=== PATIENT | female | born 1980 | race African-American/Black ===

== ENCOUNTER 2020-01-24 15:05 | Emergency (ER) | payer MEDICAID, OTHER ==
--- NOTE | 2020-01-24 15:38 | ER Document Report ---
ED Medical Screen (RME) - General Chief Complaint: Syncope Stated Complaint: POSSIBLE SYNCOPE Time Seen by Provider: 01/24/20 15:36 Primary Care Provider: CARLOS RAWLS NP [Primary Care Provider] - Follow up as needed Mode of Arrival: Ambulatory Information source: Patient Notes: 39-year-old female presented to ED for syncopal episode last night. She states she was in the shower when her heard her fall came running in there and she was unconscious in the shower. She states she has never had this happen before. She states she did not come to the emergency room last night because she did not feel she needed to. She does have a history of migraines and hypothyroidism. She states she does not have any cardiac history she does not have a history of diabetes in her has had a vasectomy. Patient is alert oriented respirations regular nonlabored speaking in full sentences answering all questions appropriately at this time. I have greeted and performed a rapid initial assessment of this patient. A comprehensive ED assessment and evaluation of the patient, analysis of test results and completion of medical decision making process will be conducted by an additional ED providers. TRAVEL OUTSIDE OF THE [place] IN LAST 30 DAYS: No - Related Data Allergies/Adverse Reactions: No Known Allergies Allergy (Verified 01/24/20 15:25) Home Medications: migraine medication. naproxen. levothyroxine. melatonin. mthocarbamol. gabapentin. sertraline Past Medical History - Social History Chew tobacco use (# tins/day): No Frequency of alcohol use: Occasional Drug Abuse: None Neurological Medical History: Reports: Hx Migraine Psychiatric Medical History: Reports: Hx Depression Past Surgical History: Reports: Hx Cholecystectomy - Immunizations Hx Diphtheria, Pertussis, Tetanus Vaccination: Yes Physical Exam - Vital signs Vitals: Temp Pulse Resp BP Pulse Ox 98.7 F 89 16 104/70 100 01/24/20 15:10 01/24/20 15:10 01/24/20 15:10 01/24/20 15:10 01/24/20 15:10 Course - Vital Signs Vital signs: Temp Pulse Resp BP Pulse Ox 98.7 F 89 16 104/70 100 01/24/20 15:26 01/24/20 15:10 01/24/20 15:10 01/24/20 15:10 01/24/20 15:10 Doctor's Discharge - Discharge Referrals: CARLOS RAWLS, [employer] [Primary Care Provider] - Follow up as needed
[2020-01-24 15:58] LABS: HEMATOCRIT 29.3 % (36.0-47.0); HEMOGLOBIN 9.5 g/dL (12.0-15.5); MEAN CORPUSCULAR HEMOGLOBIN 26.1 pg (27.0-33.4); MEAN CORPUSCULAR HGB CONC 32.5 g/dL (32.0-36.0); MEAN CORPUSCULAR VOLUME 80 fl (80-97); PLATELET COUNT 315 10^3/uL (150-450); RED BLOOD COUNT 3.65 10^6/uL (3.72-5.28); RED CELL DISTRIBUTION WIDTH 19.7 % (11.5-14.0); WHITE BLOOD COUNT 6.8 10^3/uL (4.0-10.5)
[2020-01-24 16:03] LABS: AMORPHOUS SEDIMENT,URINE TRACE /HPF; APPEARANCE,URINE SLIGHTLY-CLOUDY; BILIRUBIN,URINE SMALL (NEGATIVE); COLOR,URINE YELLOW; GLUCOSE, URINE NEGATIVE (NEGATIVE); KETONES,URINE NEGATIVE (NEGATIVE); PROTEIN,URINE NEGATIVE (NEGATIVE); URINE SPECIFIC GRAVITY 1.019
--- NOTE | 2020-01-24 16:03 | RADIOLOGY REPORT (SQ) ---
EXAM DESCRIPTION: CHEST SINGLE VIEW IMAGES COMPLETED DATE/TIME: 01/24/2020 3:52 pm REASON FOR STUDY: #1 SYNCOPE COMPARISON: 09/05/2016 EXAM PARAMETERS: NUMBER OF VIEWS: One view. TECHNIQUE: Single frontal radiographic view of the chest acquired. RADIATION DOSE: NA LIMITATIONS: None. FINDINGS: LUNGS AND PLEURA: No opacities, masses or pneumothorax. No pleural effusion. MEDIASTINUM AND HILAR STRUCTURES: No masses. Contour normal. HEART AND VASCULAR STRUCTURES: Heart normal in size. Normal vasculature. BONES: No acute findings. HARDWARE: None in the chest. OTHER: No other significant finding. IMPRESSION: NO ACUTE RADIOGRAPHIC FINDING IN THE CHEST. TECHNICAL DOCUMENTATION: JOB ID: [id number] 2010 [employer]- All Rights Reserved Reading location - IP/workstation name: [email or web address]
[2020-01-24 16:15] LABS: ALBUMIN 4.5 g/dL (3.5-5.0); ALKALINE PHOSPHATASE 58 U/L (38-126); ANION GAP 5 (5-19); ASPARTATE AMINO TRANSFERASE 25 U/L (14-36); BILIRUBIN,TOTAL 0.4 mg/dL (0.2-1.3); BLOOD UREA NITROGEN 6 mg/dL (7-20); CALCIUM 8.8 mg/dL (8.4-10.2); CARBON DIOXIDE 28 mmol/L (22-30); CHLORIDE 105 mmol/L (98-107); GLUCOSE 87 mg/dL (75-110); POTASSIUM 3.9 mmol/L (3.6-5.0); TOTAL PROTEIN 7.7 g/dL (6.3-8.2); URINE AMPHETAMINES SCREEN NEGATIVE; URINE BENZODIAZEPINES SCREEN NEGATIVE; URINE COCAINE SCREEN NEGATIVE; URINE MARIJUANA (THC) SCREEN NEGATIVE; URINE METHADONE SCREEN NEGATIVE; URINE PHENCYCLIDINE SCREEN NEGATIVE
[2020-01-24 16:16] LABS: URINE BARBITURATES SCREEN UNCONFIRMED POSITIVE
--- NOTE | 2020-01-24 16:18 | RADIOLOGY REPORT (SQ) ---
EXAM DESCRIPTION: CT HEAD WITHOUT IMAGES COMPLETED DATE/TIME: 01/24/2020 3:59 pm REASON FOR STUDY: Syncopal episode last night hit head headache COMPARISON: None. TECHNIQUE: Axial images acquired through the brain without intravenous contrast. Images reviewed wi th bone, brain and subdural windows. Additional sagittal and coronal reconstructions were generated. Images stored on PACS. All CT scanners at this facility use dose modulation, iterative reconstruction, and/or weight based d osing when appropriate to reduce radiation dose to as low as reasonably achievable (ALARA). [facility]: Dose Right [facility]: CareDose [facility]: Dose Right [facility]: Teradose 4D [facility]: [employer] RADIATION DOSE: CT Rad equipment meets quality standard of care and radiation dose reduction techniq ues were employed. CTDIvol: 53.2 mGy. DLP: 1017 mGy-cm. mGy. LIMITATIONS: None. FINDINGS: VENTRICLES: Normal size and contour. CEREBRUM: Low-attenuation lesion measuring approximately 14 x 11 mm within the mesial right temporal lobe, possibly prior lacunar infarct, arachnoid cyst or prominent perivascular space. No hemorrhage. No midline shift. No evidence for acute infarction. Normal nobles/white matter differentiation. No a reas of low density in the white matter. Bilateral basal ganglia mineralization. CEREBELLUM: No masses. No hemorrhage. No alteration of density. No evidence for acute infarction. EXTRAAXIAL SPACES: No fluid collections. No masses. ORBITS AND GLOBE: No intra- or extraconal masses. Normal contour of globe without masses. CALVARIUM: No fracture. PARANASAL SINUSES: No fluid or mucosal thickening. SOFT TISSUES: No mass or hematoma. OTHER: No other significant finding. IMPRESSION: 1. No evidence of acute intracranial process. 2. 14 x 11 mm CSF attenuation lesion within the mesial right temporal lobe possibly arachnoid cyst, prominent perivascular space or prior lacunar infarct with the former favored. EVIDENCE OF ACUTE STROKE: NO. COMMENT: Quality ID # [id number]: Final reports with documentation of one or more dose reduction techniques (e.g., Automated exposure control, adjustment of the mA and/or kV according to patient size, use of iterative reconstruction technique) TECHNICAL DOCUMENTATION: JOB ID: [id number] 2010 [employer]- All Rights Reserved Reading location - IP/workstation name: [email or web address]
[2020-01-24 16:24] LABS: ABSOLUTE LYMPHOCYTES# (MANUAL) 1.4 10^3/uL (0.5-4.7); ABSOLUTE MONOCYTES # (MANUAL) 0.6 10^3/uL (0.1-1.4); BASOPHILS % (MANUAL) 1 % (0-2); LYMPHOCYTES % (MANUAL) 20 % (13-45); MONOCYTES % (MANUAL) 9 % (3-13); SEGMENTED NEUTROPHILS % (MAN) 40 % (42-78); TOTAL CELLS COUNTED 100
[2020-01-24 16:29] LABS: ANISOCYTOSIS 2+; PLATELET COMMENT ADEQUATE; POIKILOCYTOSIS 1+; POLYCHROMASIA SLIGHT; SCHISTOCYTES SLIGHT; SMUDGE CELLS PRESENT; TARGET CELLS 1+; TEAR DROP CELLS 1+
[2020-01-24 16:30] LABS: EOSINOPHILS % (MANUAL) 29 % (0-6)
[2020-01-24] MEDS ORDERED: BUTALB/ACETAMINOPHEN/CAFFEINE 1 TAB EACH PO ONE (16:47)
--- NOTE | 2020-01-24 17:40 | ER Document Report ---
ED General - General Chief Complaint: Syncope Stated Complaint: POSSIBLE SYNCOPE Time Seen by Provider: 01/24/20 15:36 Primary Care Provider: CARLOS RAWLS NP [Primary Care Provider] - Follow up as needed Mode of Arrival: Ambulatory Information source: Patient Notes: Otherwise healthy 39-year-old female presenting to the emergency department chief complaint of syncopal episode that occurred last night. Patient reports she was in a very hot shower when she became dizzy went to turn off the water passed out. Patient reports she fell onto her left side. She states her came to her aid and was able to arouse her immediately. She denies any history of syncopal episodes in the past. She states she felt fine after the episode so she did not seek medical treatment. Today she called her primary care provider to let them know what happened and they recommended she come into the emergency department today. TRAVEL OUTSIDE OF THE [place] IN LAST 30 DAYS: No - Related Data Allergies/Adverse Reactions: No Known Allergies Allergy (Verified 01/24/20 15:25) Home Medications: migraine medication. naproxen. levothyroxine. melatonin. mthocarbamol. gabapentin. sertraline Past Medical History - General Information source: Patient - Social History Smoking Status: Current Every Day Smoker Chew tobacco use (# tins/day): No Frequency of alcohol use: Occasional Drug Abuse: None Family History: Reviewed & Not Pertinent Patient has homicidal ideation: No Neurological Medical History: Reports: Hx Migraine Psychiatric Medical History: Reports: Hx Depression Past Surgical History: Reports: Hx Cholecystectomy - Immunizations Hx Diphtheria, Pertussis, Tetanus Vaccination: Yes Review of Systems - Review of Systems Musculoskeletal: See HPI Neurological/Psychological: See HPI -: Yes All other systems reviewed and negative Physical Exam - Vital signs Vitals: Temp Pulse Resp BP Pulse Ox 98.7 F 89 16 104/70 100 01/24/20 15:10 01/24/20 15:10 01/24/20 15:10 01/24/20 15:10 01/24/20 15:10 - Notes Notes: PHYSICAL EXAMINATION: GENERAL: Well-appearing, well-nourished and in no acute distress. HEAD: Atraumatic, normocephalic. EYES: Pupils equal round and reactive to light, extraocular movements intact, conjunctiva are normal. ENT: Nares patent, oropharynx clear without exudates. Moist mucous membranes. NECK: Normal range of motion, supple without lymphadenopathy LUNGS: Breath sounds clear to auscultation bilaterally and equal. No wheezes rales or rhonchi. HEART: Regular rate and rhythm without murmurs ABDOMEN: Soft, nontender, nondistended abdomen. No guarding, no rebound. No masses appreciated. Female : Deferred. Musculoskeletal: Normal range of motion, no pitting or edema. No cyanosis. Tenderness to left anterior/lateral ribs. No crepitus or deformity. NEUROLOGICAL: Cranial nerves grossly intact. Normal speech, normal gait. Norm al sensory, motor exams PSYCH: Normal mood, normal affect. SKIN: Warm, Dry, normal turgor, no rashes or lesions noted. Course - Re-evaluation Re-evalutation: Patient appears well, nontoxic, vital signs are within normal limits today. EKG shows sinus rhythm, normal axis, no ST segment elevations or depressions to suggest ischemia. Patient's lab tests today were unremarkable. Findings on head CT were discussed with attending physician Dr. Arenas. He recommends patient follow-up as an outpatient with this. This was discussed with the patient. Patient states that she sees neurology for her migraines, she will call them to discuss the head CT and establish a follow-up appointment with either neurology or neurosurgery. - Vital Signs Vital signs: Temp Pulse Resp BP Pulse Ox 98.7 F 89 9 L 105/68 100 01/24/20 15:26 01/24/20 15:10 01/24/20 17:49 01/24/20 17:49 01/24/20 17:49 - Laboratory Result Diagrams: 01/24/20 15:45 01/24/20 15:45 Laboratory results interpreted by me: 01/24/20 01/24/20 01/24/20 15:44 15:45 15:45 RBC 3.65 L Hgb 9.5 L Hct 29.3 L MCH 26.1 L RDW 19.7 H Seg Neuts % (Manual) 40 L Eosinophils % (Manual) 29 H Absolute Eos (Manual) 2.0 H BUN 6 L Urine Bilirubin SMALL H Urine Urobilinogen 4.0 H Discharge - Discharge Clinical Impression: Episode of syncope Qualifiers: Syncope type: unspecified Qualified Code(s): R55 - Syncope and collapse Headache Qualifiers: Headache type: unspecified Headache chronicity pattern: unspecified pattern Intractability: not intractable Qualified Code(s): R51 - Headache Condition: Stable Disposition: HOME, SELF-CARE Additional Instructions: Syncopal Episode Syncope (fainting or near-fainting) can occur from many different health problems. Or it can be a simple fainting spell requiring no treatment. It is safe for you to go home, but further evaluation will likely be necessary. Your work-up may include tests for internal bleeding, heart disease, medication problems, or near-strokes. Tests are not always required, however, depending on the nature of your problem. The warning signs of an impending faint include: dizziness, lightheadedness, nausea, hot flashes, tingling, and weakness. If this happens, lay down and put your feet up, then wait until all of these symptoms have passed before standing up again. If these episodes become recurrent, or if you develop chest pain, heart palpitations, mental confusion, blurred vision, or headache, then you should call the physician, or go to the emergency room. Rib Contusion You have been diagnosed as having bruised ribs. It will usually take a few weeks for these injured ribs to heal. You should cough or take a deep breath at least every hour or two to prevent lung complications. You should not engage in any strenuous physical activity until released by your physician. The usual rule is "if it hurts, don't do it." Return if you develop any of the following: (1) Fever or chills. (2) Persistent cough, coughing up blood, or shortness of breath. (3) Increasing pain. (4) Weakness, lightheadedness, or fainting. As discussed please follow-up with your neurologist/neurosurgeon regarding the findings on your CT. Follow-up with your primary care provider regarding your syncopal episode. Your work-up today was reassuring. Prescriptions: Butalb/Acetaminophen/Caffeine [Fioricet (50-325-40 mg) Tablet] 1 tab PO Q4H #20 tab Hydrocodone/Acetaminophen [[place] 5-325 mg Tablet] 1 tab PO Q6H PRN #12 tablet PRN Reason: For Pain Referrals: CARLOS RAWLS NP [Primary Care Provider] - Follow up as needed
--- NOTE | 2020-01-24 17:48 | EKG REPORT ---
SEVERITY:- NORMAL ECG - SINUS RHYTHM : Confirmed by: Tali Barcenas MD 24-Jan-2020 17:48:01
[2020-01-24 17:51] VITALS: BP 105/68
[2020-01-27 12:46] LABS: PATH REVIEW PATHOLOGIST REVIEWED
== END 2020-01-24 17:57 | disposition home or self-care (01) ==
LOC: ER 15:05
DX: R55 Syncope and collapse (principal); G43.909 Migraine, unspecified, not intractable, without status migrainosus; F32.9 Major depressive disorder, single episode, unspecified; Z79.899 Other long term (current) drug therapy; F17.200 Nicotine dependence, unspecified, uncomplicated
CPT/HCPCS: 93005; 99284; 36415; 83690; 84703; 85025; 80053; 81001; 80307; 71045; 70450; 93010; J3490

== ENCOUNTER 2020-06-22 20:20 | Emergency (ER) | payer OTHER ==
--- NOTE | 2020-06-22 22:51 | ER Document Report ---
ED Medical Screen (RME) - General Chief Complaint: Dizziness Stated Complaint: LIGHT HEADED,DIZZINESS Time Seen by Provider: 06/22/20 22:38 Primary Care Provider: CARLOS RAWLS NP [Primary Care Provider] - Follow up as needed TRAVEL OUTSIDE OF THE [place] IN LAST 30 DAYS: No - HPI Notes: 06/22/20 22:50 40-year-old female to the emergency department with complaints of a near s yncopal episode with associated diaphoresis and difficulty speaking tonight. She states she was standing in her kitchen when she felt immediately diaphoretic lightheaded and could not really talk. Her family got her to sit down in a chair and she was able to recover a little bit. She states she still feels lightheaded and slightly weak. Admits to headaches but she has daily migraines. She does not feel like her headaches are any different. Denies any chest pain or short shortness of breath. She denies any abdominal pain. Admits to nausea but denies any vomiting or diarrhea. Denies any fevers or chills. Denies any cough. I performed a brief medical screening exam on the patient determined that the patient needs further evaluation and management by main side provider. I have placed initial orders to help expedite care. - Related Data Allergies/Adverse Reactions: No Known Allergies Allergy (Verified 01/24/20 15:25) Past Medical History Neurological Medical History: Reports: Hx Migraine Psychiatric Medical History: Reports: Hx Depression Past Surgical History: Reports: Hx Cholecystectomy - Immunizations Hx Diphtheria, Pertussis, Tetanus Vaccination: Yes Physical Exam - Vital signs Vitals: Temp Pulse Resp BP Pulse Ox 98.0 F 67 18 110/71 100 06/22/20 20:55 06/22/20 20:55 06/22/20 20:55 06/22/20 20:55 06/22/20 20:55 Course - Vital Signs Vital signs: Temp Pulse Resp BP Pulse Ox 98.0 F 67 18 110/71 100 06/22/20 20:55 06/22/20 20:55 06/22/20 20:55 06/22/20 20:55 06/22/20 20:55 Doctor's Discharge - Discharge Referrals: CARLOS RAWLS NP [Primary Care Provider] - Follow up as needed
[2020-06-22 23:22] LABS: ABSOLUTE BASOPHILS # (AUTO) 0.1 10^3/uL (0.0-0.2); ABSOLUTE EOSINOPHILS # (AUTO) 0.2 10^3/uL (0.0-0.6); ABSOLUTE LYMPHOCYTES (AUTO) 1.9 10^3/uL (0.5-4.7); ABSOLUTE MONOCYTES (AUTO) 0.6 10^3/uL (0.1-1.4); ABSOLUTE NEUT (AUTO) 6.7 10^3/uL (1.7-8.2); BASOPHILS % (AUTO) 0.6 % (0-2); EOSINOPHILS % (AUTO) 2.3 % (0-6); HEMATOCRIT 28.2 % (36.0-47.0); LYMPHOCYTES % (AUTO) 20.1 % (13-45); MEAN CORPUSCULAR HEMOGLOBIN 25.1 pg (27.0-33.4); MEAN CORPUSCULAR HGB CONC 31.8 g/dL (32.0-36.0); MEAN CORPUSCULAR VOLUME 79 fl (80-97); MONOCYTES % (AUTO) 6.5 % (3-13); PLATELET COUNT 306 10^3/uL (150-450); RED BLOOD COUNT 3.57 10^6/uL (3.72-5.28); RED CELL DISTRIBUTION WIDTH 20.2 % (11.5-14.0); SEGMENTED NEUTROPHILS % (AUTO) 70.5 % (42-78); TOTAL CELLS COUNTED % (AUTO) 100 %; WHITE BLOOD COUNT 9.6 10^3/uL (4.0-10.5)
[2020-06-22 23:31] LABS: INTERNATIONAL RATION (INR) 1.06; PARTIAL THROMBOPLASTIN TIME 27.9 SEC (23.5-35.8)
--- NOTE | 2020-06-22 23:31 | RADIOLOGY REPORT (SQ) ---
EXAM DESCRIPTION: XR CHEST 1 VIEW COMPLETED DATE/TME: 06/22/2020 22:49 CLINICAL HISTORY: near syncope COMPARISON: 01/24/2020 FINDINGS: Single frontal radiograph view of the chest. Cardiomediastinal silhouette: Normal size and contour. Lungs: No consolidation, pneumothorax, or pleural effusion. Bones: No acute osseous abnormality. Upper abdomen: No abnormality identified. IMPRESSION: 1. No acute pulmonary process identified.
--- NOTE | 2020-06-22 23:35 | RADIOLOGY REPORT (SQ) ---
EXAM DESCRIPTION: CT HEAD WITHOUT IV CONTRAST COMPLETED DATE/TME: 06/22/2020 22:50 CLINICAL HISTORY: near syncope, speech difficulty COMPARISON: 01/24/2020 TECHNIQUE: Axial CT of the head obtained from the skull apex to the skull base without contrast. FINDINGS: No acute intracranial hemorrhage identified. No mass effect, shift of the midline, abnormal extra-axial fluid collection or CT evidence of acute ischemic change identified. Stable 1.1 x 1.4 cm CSF density structure at the medial aspect of the right temporal lobe may represent a small arachnoid cyst, prominent perivascular space, and a remote lacunar infarction. The ventricular system is unremarkable. No acute abnormalities of the supratentorial white matter, basal ganglia, cerebellum, or brainstem. Calcification of the basal ganglia. The visualized paranasal sinuses and the mastoids are relatively well aerated. No skull fracture identified. Visualized orbits and globes are unremarkable. IMPRESSION: 1. No acute intracranial abnormality identified. This exam was performed according to our departmental dose-optimization program, which includes automated exposure control, adjustment of the mA and/or kV according to patient size and/or use of iterative reconstruction technique.
[2020-06-22 23:36] LABS: ALBUMIN 4.4 g/dL (3.5-5.0); ALKALINE PHOSPHATASE 70 U/L (38-126); ANION GAP 8 (5-19); ASPARTATE AMINO TRANSFERASE 28 U/L (14-36); BILIRUBIN,DIRECT 0.2 mg/dL (0.0-0.4); BILIRUBIN,TOTAL 0.5 mg/dL (0.2-1.3); BLOOD UREA NITROGEN 8 mg/dL (7-20); CALCIUM 8.9 mg/dL (8.4-10.2); CARBON DIOXIDE 25 mmol/L (22-30); CHLORIDE 104 mmol/L (98-107); GLUCOSE 99 mg/dL (75-110); POTASSIUM 4.5 mmol/L (3.6-5.0); TOTAL PROTEIN 7.4 g/dL (6.3-8.2)
[2020-06-23] MEDS ORDERED: NORMAL SALINE 1000 ML 1,000 ML IV ONE (02:07)
--- NOTE | 2020-06-23 02:33 | ER Document Report ---
ED Syncope and Near Syncope - General Chief Complaint: Passed Out Prior to Arrival Stated Complaint: LIGHT HEADED,DIZZINESS Time Seen by Provider: 06/22/20 22:38 Primary Care Provider: CARLOS RAWLS NP [NURSE PRACTITIONER] - Follow up as needed TRAVEL OUTSIDE OF THE [place] IN LAST 30 DAYS: No - HPI Patient complains to provider of: Nearly fainting Episode witnessed (by whom): Yes - Symptoms prior to episode: Lightheaded, Sweaty Position/Activity at time of episode: Standing Context: Almost passed out Current symptoms: None/feels back to normal Notes: Patient is a 40-year-old female with a past medical history of migraines who presents with near syncope. 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 She became lightheaded and diaphoretic. It was difficult for her to speak because she felt weak. Her helped her into her chair. She did not have a full syncopal episode or hit her head. She felt better after she sat down. She has not eaten anything or drank water all day. She does drink coffee heavily. Her states she does not eat well because she just does not think about. Patient states she had a similar episode in the shower several months ago. She is denying any chest pain. Patient states she has chronic migraines which is not new. Currently she is denying any pain. Patient states she just feels tired. She states she is chronically anemic and was on iron pills but stopped. She denies any heavy or abnormal vaginal bleeding or GI bleeding. She is currently on her menstrual cycle. - Related Data Allergies/Adverse Reactions: No Known Allergies Allergy (Verified 01/24/20 15:25) Home Medications: thyroid med, zoloft, gabapentin, naproxen, Past Medical History - General Information source: Patient - Social History Smoking Status: Current Every Day Smoker Family History: Reviewed & Not Pertinent Neurological Medical History: Reports: Hx Migraine Psychiatric Medical History: Reports: Hx Depression Past Surgical History: Reports: Hx Cholecystectomy - Immunizations Hx Diphtheria, Pertussis, Tetanus Vaccination: Yes Review of Systems - Review of Systems Notes: CONSTITUTIONAL: No fever, fatigue or weight loss. SKIN: No rash. HENT: No congestion, ear pain, or sore throat. EYES: No recent vision problems or eye pain. ENDOCRINE: No polyuria or polydipsia. CARDIOVASCULAR: No chest pain or edema. RESPIRATORY: No cough, shortness of breath, congestion, or wheezing. GASTROINTESTINAL: No abdominal pain, nausea, vomiting, bloody stools or diarrhea. GENITOURINARY: No dysuria. MUSCULOSKELETAL: No joint pain or swelling. LYMPHATIC: No swollen glands. NEUROLOGIC: No seizures. No headache, focal weakness or sensory changes. Pos itive for near syncope. HEMATOLOGIC: No unusual bruising or bleeding. PSYCHIATRIC: No depression or anxiety. Physical Exam - Vital signs Vitals: Temp Pulse Resp BP Pulse Ox 98.0 F 67 18 110/71 100 06/22/20 20:55 06/22/20 20:55 06/22/20 20:55 06/22/20 20:55 06/22/20 20:55 Interpretation: Normal - Notes Notes: VITAL SIGNS: Within normal limits. GENERAL: No acute distress, non-toxic appearance. HEAD: Normal with no signs of head trauma. EYES: PERRLA, EOMI, conjunctiva normal, no discharge. EARS: Hearing grossly intact. NOSE: Normal. NECK: Normal range of motion, no tenderness, supple, no lymphadenopathy, No adenopathy, no JVD. CHEST: Clear breath sounds bilaterally. No wheezes, rales, or rhonchi. CARDIAC: Regular rate and rhythm. S1 and S2, without murmurs, gallops, or rubs. VASCULAR: No Edema. Peripheral pulses normal and equal in all extremities. ABDOMEN: Normal and soft with no tenderness, no masses or pulsatile masses. GENITOURINARY: Normal, No tenderness LYMPATHTIC: No lymphadenopathy noted. MUSCULOSKELETAL: Good range of motion of all major joints. Extremities without clubbing, cyanosis or edema. NEUROLOGICAL: Alert and oriented x 3. No focal sensory or strength deficits. Speech normal. Follows commands appropriately. PSYCHIATRIC: Normal Affect, judgement and mood. SKIN: Normal appearance with no rashes or lesions. Course - Re-evaluation Re-evalutation: 06/23/20 06:05 Patient states she feels much better. She states this has happened before in the past. Her states she does not eat or drink enough. CT and chest x- ray were unremarkable. I did inform her of the low hemoglobin which she has had before. I informed her to follow-up with her doctor as she may need to restart the iron pills. Patient denied any rectal bleeding or unusual vaginal bleeding. Patient had lightheadedness and diaphoresis prior to her near syncope. EKG was unremarkable. Patient also had 2- troponins. I have low suspicion for cardiac etiologyg. She was instructed to eat regular meals and drink plenty of fluids. Patient was given a liter of fluids. She ambulated in the ED without difficulty. Her blood pressure was 103/77. Patient and her were told to follow-up with the PCP. They verbalized understanding. - Vital Signs Vital signs: Temp Pulse Resp BP Pulse Ox 98.0 F 67 18 103/77 100 06/22/20 20:55 06/22/20 20:55 06/22/20 20:55 06/23/20 05:17 06/22/20 20:55 - Laboratory Result Diagrams: 06/22/20 23:05 06/22/20 23:05 Laboratory results interpreted by me: 06/22/20 06/23/20 23:05 02:08 RBC 3.57 L Hgb 9.0 L Hct 28.2 L MCV 79 L MCH 25.1 L MCHC 31.8 L RDW 20.2 H Urine Protein 100 H Urine Ketones TRACE H Urine Blood LARGE H Urine Urobilinogen 2.0 H - EKG Interpretation by Al EKG shows normal: Sinus rhythm Rate: Normal Rhythm: NSR When compared to previous EKG there are: No significant change Additional EKG results interpreted by me: 06/23/20 04:03 EKG interpreted by me. Sinus rhythm at a rate of 72. QTc 456. Artifact present. No acute ST changes. Previous EKG is similar. Discharge - Discharge Clinical Impression: Near syncope Condition: Stable Disposition: HOME, SELF-CARE Instructions: Near Syncopal Episode ([facility]) Additional Instructions: Please follow-up with your family doctor. Please make sure you are eating regular meals and drinking water. Please return to the ER for any headache, chest pain, or any return of symptoms. Referrals: CARLOS RAWLS NP [NURSE PRACTITIONER] - Follow up as needed
[2020-06-23 03:42] LABS: APPEARANCE,URINE TURBID; BILIRUBIN,URINE NEGATIVE (NEGATIVE); GLUCOSE, URINE NEGATIVE (NEGATIVE); KETONES,URINE TRACE mg/dL (NEGATIVE); LEUKOCYTE ESTERASE,URINE NEGATIVE (NEGATIVE); NITRITE,URINE NEGATIVE (NEGATIVE); PROTEIN,URINE 100 mg/dL (NEGATIVE); URINE SPECIFIC GRAVITY 1.027
[2020-06-23 03:43] LABS: COLOR,URINE BROWN
[2020-06-23 05:31] VITALS: BP 103/77
--- NOTE | 2020-06-23 07:19 | EKG REPORT ---
SEVERITY:- BORDERLINE ECG - SINUS RHYTHM BORDERLINE T ABNORMALITIES, ANT-LAT LEADS : Confirmed by: Jamaal Polo MD 23-Jun-2020 07:18:36
== END 2020-06-23 05:33 | disposition home or self-care (01) ==
LOC: ER 20:20
DX: R55 Syncope and collapse (principal); R42 Dizziness and giddiness; R53.1 Weakness; F32.9 Major depressive disorder, single episode, unspecified; F17.200 Nicotine dependence, unspecified, uncomplicated; Z79.899 Other long term (current) drug therapy; Z79.1 Long term (current) use of non-steroidal anti-inflammatories (NSAID)
CPT/HCPCS: 93005; 99285; 96360; 36415; 83735; 84443; 85025; 85610; 85730; 80053; 81001; 84484; 71045; 70450; 93010; J7030; 87086